=== PATIENT | female | born 1945 | race Caucasian/White ===

== ENCOUNTER 2018-08-17 01:06 | Outpatient (CLI) | payer MEDICARE, BC, SELFPAY ==
--- NOTE | 2018-08-17 11:12 | DI.MAMMO_ITS ---
SYMPTOM/DIAGNOSIS: SCREENING FOR BREAST CANCER Z12.31 BILATERAL SCREENING MAMMOGRAM: Mammograms were interpreted according to the usual protocol including computer analysis with CAD system, tomosynthesis and C view imaging. Comparison is made from exams from 2013 through 2017. The breasts are composed of scattered fibroglandular densities. There are no suspicious masses or suspicious microcalcifications. There has been no significant change. IMPRESSION: Category 1-B. Negative mammogram. Yearly screening mammography is recommended. [facility] ASSESSMENT OF FINDINGS: Negative. Category 1. Patient will receive a letter notifying them of these results. BI-RADS category B. There are scattered areas of fibroglandular density.
[2018-08-17 11:45] LABS: Anion Gap 9.9 mmol/L (3-11); BUN 23 mg/dL (7-18); CO2 29.1 mmol/L (21.0-32.0); CREATININE 1.41 mg/dL (0.55-1.02); Calcium 9.4 mg/dL (8.5-10.1); Chloride 104 mmol/L (98-107); Estimated GFR 36.46 (mL/min/1.73m2); Glucose 108 mg/dL (70-100); Potassium 4.2 mmol/L (3.5-5.1); Sodium 143 mmol/L (136-145)
== END 2018-08-17 01:26 ==
PROVIDERS: PCP Nurse Practitioner Family; Visit Provider Nurse Practitioner Family
DX: Z12.31 Encounter for screening mammogram for malignant neoplasm of breast (principal); N18.4 Chronic kidney disease, stage 4 (severe)
CPT/HCPCS: 36415; 77063; 77067; 80048

== ENCOUNTER 2018-12-21 13:23 | Emergency (ER) | payer MEDICARE, BC, SELFPAY ==
[2018-12-21 13:28] VITALS: BP 185/85; PULSE 100; RESP 20; TEMP 36.8; O2SAT 96
--- NOTE | 2018-12-21 13:38 | W.ED.GENAD ---
Discharge Plan Disposition Patient Disposition: HOME Condition: Stable Discharge Details Chief Complaint: GenMedical Clinical Impression: Essential hypertension Primary Care Provider: Ania Chauhan ED Provider: Lino Glover Home Meds and New Rx's Prescriptions: No Action irbesartan 300 mg tablet 300 mg PO DAILY Qty: 90 RF: 3 Shingrix (PF) 50 mcg/0.5 mL suspension for reconstitution 50 mcg IM .COMPLEX Qty: 1 RF: 1 calcium carbonate-vitamin D3 [Calcium 600 + D(3)] 1 EACH tablet 1 ea PO DAILY RF: 0 loratadine [Claritin Liqui-Gel] 10 MG capsule 10 mg PO DAILY RF: 0 Discharge Instructions Instructions: Hypertension (ED) Additional Instructions: Follow up with your primary care provider within 1-2 weeks for recheck of your blood pressure if you have severe headaches, vomit, decreased urine output, chest pain, abdominal pain or difficulty breathing return to the emergency department Medical Decision Making 73 yo female with hx of htn, comes in with complaints of high blood pressure. She states she checks it routeinly and it was 180 this morning and was told by her pcp in the past to come to the ED if bp s over 150. She denies any symptoms at all. Has no focal neuro deficits, denies any changes in urinary output. She is here for asymptomatic htn and do not feel lab work at this time indicated, I educated on indications to seek ED eval for htn and advised f/u with pcp for continued management of her bp Differential Diagnosis asymptomatic htn, htn HPI General Mode of arrival: ambulatory. Date/Time Provider Initiated Documentation: 12/21/18 13:26. Limitations to Documentation: no limitations. Information obtained by: patient. History of Present Illness 73 year old F presents to the emergency department with the chief complaint of high blood pressure, Patient started experiencing this unknown and it has been intermittent. No relieving factors improve symptom(s), No exacerbating factors reported . Patient notes no other symptoms.. Related Data Home Medications Medication Instructions Recorded Confirmed calcium carbonate-vitamin D3 1 ea PO DAILY 12/03/16 12/21/18 [Calcium 600-Vit D3 400 Tablet] loratadine [Claritin] 10 mg PO DAILY 12/03/16 12/21/18 irbesartan 300 mg tablet 300 mg PO DAILY #90 tab-cap 06/01/18 12/21/18 varicella-zoster glycoE [id number] 50 mcg IM .COMPLEX #1 each 09/14/18 12/21/18 adj(PF) 50 mcg/0.5 mL IM susp, kit Previous Rx's Medication Instructions Recorded irbesartan 300 mg tablet 300 mg PO DAILY #90 tab-cap 06/01/18 varicella-zoster glycoE [id number] 50 mcg IM .COMPLEX #1 each 09/14/18 adj(PF) 50 mcg/0.5 mL IM susp, kit Allergies Allergy/AdvReac Type Severity Reaction Status Date / Time hydrochlorothiazide Allergy Severe Toe Unverified 12/21/18 13:31 Cramps, Red Face, Nausea, Dizzy amlodipine AdvReac Severe leg Unverified 12/21/18 13:31 swelling metoprolol AdvReac Intermediate lightheaded Verified 12/21/18 13:31 and nausea, feet swelling NSAIDS (Non-Steroidal AdvReac Intermediate GI Upset Unverified 12/21/18 13:31 Anti-Inflamma General Stated Complaint: GenMedical FELY: 4 Review of Systems Review of Systems All systems reviewed & are unremarkable except as noted in HPI and below Constitutional Denies chills, Denies fever(s) and Denies weakness Eyes Denies loss of vision ENT Denies change in voice Cardiovascular Denies chest pain and Denies dyspnea Respiratory Denies cough and Denies dyspnea Gastrointestinal Denies abdominal pain, Denies nausea and Denies vomiting Genitourinary Denies dysuria Musculoskeletal Denies joint swelling Integumentary/Breasts Denies rash Neurologic Denies loss of vision and Denies weakness Endocrine Denies cold intolerance and Denies heat intolerance [facility] Medical History Essential hypertension (Chronic) Hyperlipidemia, unspecified (Chronic) Tubular adenoma (Inactive) Stage 4 chronic kidney disease (Chronic 05/14/17) Osteopenia (Chronic) Surgical History section (Resolved) Dilation and curettage (Resolved ~1980) Extraction of cataract (Resolved ~11/2014) Yag Capsulotomy (Resolved 06/23/16) colonoscopy w/ bx (Resolved 07/12/13) Family History Mother Neoplasm Father Essential hypertension CHF (congestive heart failure) Heart disease Neoplasm Stroke Sister Neoplasm Sister Neoplasm Brother Neoplasm Brother Neoplasm Grandmother Neoplasm Grandfather Myocardial infarction Social History Smoking/Tobacco Use Status: Never Alcohol Intake: current Alcohol Intake frequency: holidays/special occasions only Substance use type: does not use Adopted: No Household members: spouse Housing: house Number of Children: 1 number of grandchildren: 2 Pets and animals: Yes Pets and animals: dog(s) What type of physical activity do you participate in: regular exercise Duration: 30-45 minutes/day Frequency: daily Seatbelt use: always Drive intox or ride w/intox 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 Working smoke detector in home: Yes Fire extinguisher in home: No Carbon monox detector in home: Yes Firearms in home: Yes Firearms unloaded and locked: Yes Do you feel safe at home: Yes Victim of physical abuse: No Victim of emotional abuse: No Victim of sexual abuse: No Exam Const General: no acute distress Orientation: alert HENMT Head: normal to inspection Ears: external ears normal General nose exam: external nose normal Mouth: moist mucous membranes Eyes General: appearance normal, both eyes and all related structures Neck Neck: normal visual inspection Resp Effort & Inspection: normal respiratory effort and able to speak in complete sentences Cardio Rate: regular rate Skin General skin exam: no rashes or lesions noted Neuro General: alert and oriented x3 Extrem General: normal to inspection Psych Mental Status: mental status grossly normal Course Vital Signs Temperature 36.8 C 12/21/18 13:28 Pulse 100 H 12/21/18 13:28 Respiratory Rate 20 12/21/18 13:28 Blood Pressure 185/85 H 12/21/18 13:28 Pulse Oximetry 96 12/21/18 13:28 Temperature 36.8 C 12/21/18 13:28 Temperature Source Temporal Artery Scan 12/21/18 13:28 Pulse 100 H 12/21/18 13:28 Respiratory Rate 20 12/21/18 13:28 Respiratory Effort Non-Labored 12/21/18 13:28 Blood Pressure 185/85 H 12/21/18 13:28 Pulse Oximetry 96 12/21/18 13:28 Oxygen Delivery Method Room Air 12/21/18 13:28 Oxygen Flow Rate 0 12/21/18 13:28 Pain Level 0 12/21/18 13:28
--- NOTE | 2018-12-21 13:42 | ED.GENADUL_ITS ---
Discharge Plan Disposition Patient Disposition: HOME Condition: Stable Discharge Details Chief Complaint: GenMedical Clinical Impression: Essential hypertension Primary Care Provider: Ania Chauhan ED Provider: Lino Glover Home Meds and New Rx's Prescriptions: No Action irbesartan 300 mg tablet 300 mg PO DAILY Qty: 90 RF: 3 Shingrix (PF) 50 mcg/0.5 mL suspension for reconstitution 50 mcg IM .COMPLEX Qty: 1 RF: 1 calcium carbonate-vitamin D3 [Calcium 600 + D(3)] 1 EACH tablet 1 ea PO DAILY RF: 0 loratadine [Claritin Liqui-Gel] 10 MG capsule 10 mg PO DAILY RF: 0 Discharge Instructions Instructions: Hypertension (ED) Additional Instructions: Follow up with your primary care provider within 1-2 weeks for recheck of your blood pressure if you have severe headaches, vomit, decreased urine output, chest pain, abdominal pain or difficulty breathing return to the emergency department Medical Decision Making 73 yo female with hx of htn, comes in with complaints of high blood pressure. She states she checks it routeinly and it was 180 this morning and was told by her pcp in the past to come to the ED if bp s over 150. She denies any symptoms at all. Has no focal neuro deficits, denies any changes in urinary output. She is here for asymptomatic htn and do not feel lab work at this time indicated, I educated on indications to seek ED eval for htn and advised f/u with pcp for continued management of her bp Differential Diagnosis asymptomatic htn, htn HPI General Mode of arrival: ambulatory . Date/Time Provider Initiated Documentation: 12/21/18 13:26 . Limitations to Documentation: no limitations . Information obtained by: patient . History of Present Illness 73 year old F presents to the emergency department with the chief complaint of high blood pr essure, Patient started experiencing this unknown and it has been intermittent. No relieving factors improve symptom(s), No exacerbating factors reported . Patient notes no other symptoms.. Related Data Home Medications Medication Instructions Recorded Confirmed calcium carbonate-vitamin D3 1 ea PO DAILY 12/03/16 12/21/18 [Calcium 600-Vit D3 400 Tablet] loratadine [Claritin] 10 mg PO DAILY 12/03/16 12/21/18 irbesartan 300 mg tablet 300 mg PO DAILY #90 tab-cap 06/01/18 12/21/18 varicella-zoster glycoE [id number] 50 mcg IM .COMPLEX #1 each 09/14/18 12/21/18 adj(PF) 50 mcg/0.5 mL IM susp, kit Previous Rx's Medication Instructions Recorded irbesartan 300 mg tablet 300 mg PO DAILY #90 tab-cap 06/01/18 varicella-zoster glycoE [id number] 50 mcg IM .COMPLEX #1 each 09/14/18 adj(PF) 50 mcg/0.5 mL IM susp, kit Allergies Allergy/AdvReac Type Severity Reaction Status Date / Time hydrochlorothiazide Allergy Severe Toe Unverified 12/21/18 13:31 Cramps, Red Face, Nausea, Dizzy amlodipine AdvReac Severe leg Unverified 12/21/18 13:31 swelling metoprolol AdvReac Intermediate lightheaded Verified 12/21/18 13:31 and nausea, feet swelling NSAIDS (Non-Steroidal AdvReac Intermediate GI Upset Unverified 12/21/18 13:31 Anti-Inflamma General Stated Complaint: GenMedical FELY: 4 Review of Systems Review of Systems All systems reviewed & are unremarkable except as noted in HPI and below Constitutional Denies chills, Denies fever(s) and Denies weakness Eyes Denies loss of vision ENT Denies change in voice Cardiovascular Denies chest pain and Denies dyspnea Respiratory Denies cough and Denies dyspnea Gastrointestinal Denies abdominal pain, Denies nausea and Denies vomiting Genitourinary Denies dysuria Musculoskeletal Denies joint swelling Integumentary/Breasts Denies rash Neurologic Denies loss of vision and Denies weakness Endocrine Denies cold intolerance and Denies heat intolerance [facility] Medical History Essential hypertension (Chronic) Hyperlipidemia, unspecified (Chronic) Tubular adenoma (Inactive) Stage 4 chronic kidney disease (Chronic 05/14/17) Osteopenia (Chronic) Surgical History section (Resolved) Dilation and curettage (Resolved ~1980) Extraction of cataract (Resolved ~11/2014) Yag Capsulotomy (Resolved 06/23/16) colonoscopy w/ bx (Resolved 07/12/13) Family History Mother Neoplasm Father Essential hypertension CHF (congestive heart failure) Heart disease Neoplasm Stroke Sister Neoplasm Sister Neoplasm Brother Neoplasm Brother Neoplasm Grandmother Neoplasm Grandfather Myocardial infarction Social History Smoking/Tobacco Use Status: Never Alcohol Intake: current Alcohol Intake frequency: holidays/special occasions only Substance use type: does not use Adopted: No Household members: spouse Housing: house Number of Children: 1 number of grandchildren: 2 Pets and animals: Yes Pets and animals: dog(s) What type of physical activity do you participate in: regular exercise Duration: 30-45 minutes/day Frequency: daily Seatbelt use: always Drive intox or ride w/intox truck driver heavy: No Working smoke detector in home: Yes Fire extinguisher in home: No Carbon monox detector in home: Yes Firearms in home: Yes Firearms unloaded and locked: Yes Do you feel safe at home: Yes Victim of physical abuse: No Victim of emotional abuse: No Victim of sexual abuse: No Exam Const General: no acute distress Orientation: alert HENMT Head: normal to inspection Ears: external ears normal General nose exam: external nose normal Mouth: moist mucous membranes Eyes General: appearance normal, both eyes and all related structures Neck Neck: normal visual inspection Resp Effort & Inspection: normal respiratory effort and able to speak in complete sentences Cardio Rate: regular rate Skin General skin exam: no rashes or lesions noted Neuro General: alert and oriented x3 Extrem General: normal to inspection Psych Mental Status: mental status grossly normal Course Vital Signs Temperature 36.8 C 12/21/18 13:28 Pulse 100 H 12/21/18 13:28 Respiratory Rate 20 12/21/18 13:28 Blood Pressure 185/85 H 12/21/18 13:28 Pulse Oximetry 96 12/21/18 13:28 Temperature 36.8 C 12/21/18 13:28 Temperature Source Temporal Artery Scan 12/21/18 13:28 Pulse 100 H 12/21/18 13:28 Respiratory Rate 20 12/21/18 13:28 Respiratory Effort Non-Labored 12/21/18 13:28 Blood Pressure 185/85 H 12/21/18 13:28 Pulse Oximetry 96 12/21/18 13:28 Oxygen Delivery Method Room Air 12/21/18 13:28 Oxygen Flow Rate 0 12/21/18 13:28 Pain Level 0 12/21/18 13:28
[2018-12-21 13:44] VITALS: RESP 20
== END 2018-12-21 13:43 | disposition home or self-care (01) ==
LOC: ER 13:50
PROVIDERS: Emergency Provider Emergency Medicine; PCP Nurse Practitioner Family
DX: I12.9 Hypertensive chronic kidney disease with stage 1 through stage 4 chronic kidney disease, or unspecified chronic kidney disease (principal); N18.4 Chronic kidney disease, stage 4 (severe)
CPT/HCPCS: 99282

== ENCOUNTER → 2019-07-20 10:46 | Outpatient (BNVA) | payer MEDICARE, BC, SELFPAY | PROVIDERS: PCP Nurse Practitioner Family; Referring Provider Nurse Practitioner Family; Visit Provider Physical Therapy Assistant | DX: Z12.11 Encounter for screening for malignant neoplasm of colon (principal); Z86.010 Personal history of colon polyps; I10 Essential (primary) hypertension ==

== ENCOUNTER 2019-08-03 09:45 | Day surgery (SDC) | payer MEDICARE, BC, SELFPAY ==
--- NOTE | 2019-08-03 09:11 | W.COLOREPORT ---
Date of service: 08/03/19 Time of Service: 09:11 Colonoscopy Report Date of procedure: 08/03/19 Pre-op diagnosis general: A. polyps RLQ abdom pain Post-op diagnosis procedure note: other (polyps x2 divertic . mass in cecum- prob colon cancer) Procedure: ce w/ bx Anesthesia proc note operative: GETA Estimated blood loss (mL): 5 Pathology: other Disposition: same day Prep: Miralax/Dulcolax Procedure Description: dicatetaed
--- NOTE | 2019-08-03 09:12 | W.PM.DSUDISC ---
Discharge Plan Disposition Patient Disposition: HOME Condition: Good Discharge Details Reason For Visit: colon scope Attending Provider: Dia Ho Primary Care Provider: Ania Chauhan Home Meds and New Rx's Prescriptions: Continued Shingrix (PF) 50 mcg/0.5 mL suspension for reconstitution 50 mcg IM .COMPLEX Qty: 1 RF: 1 calcium carbonate-vitamin D3 [Calcium 600 + D(3)] 1 EACH tablet 1 ea PO DAILY RF: 0 loratadine [Claritin Liqui-Gel] 10 MG capsule 10 mg PO DAILY RF: 0 irbesartan 300 mg tablet 300 mg PO DAILY Qty: 90 RF: 3 Discontinued polyethylene glycol 3350 17 gram/dose powder 238 g PO ONCE Qty: 238 RF: 0 bisacodyl [Dulcolax (bisacodyl)] 5 mg tablet,delayed release (DR/EC) 5 mg PO ONCE Qty: 4 RF: 0 Discharge Instructions Additional Instructions: Findings:polyp diverticula colon mass- probable cancer Follow up: Dr. Ho on august 16 -no ibuprofen/asa. tylenol is OK Please call if you develop: fevers >101.5 Nausea or Vomiting Abdominal pain that is not transient You will have some bleeding w/ BM for about 3-5 days. If you start passing clots- go to the ED. DAY SURGERY UNIT POST COLONOSCOPY INSTRUCTIONS 1. Because there will be medication in your system for the next 24 hours, you may feel a little sleepy. Your coordination will be affected. Therefore: a. Do not drive or operate dangerous equipment for 24 hours. b. Do not drink alcohol beverages for 24 hours (not even beer). c. Plan to go home and rest for the day. 2. Generally there are no restrictions on your activity after a day or so has gone by, but you may feel a bit fatigued for a few days. 3 After you arrive home you may have a light meal and return to a normal diet as you can tolerate it without feeling sick to your stomach. 4. After surgery, you may feel pain or discomfort. This should be only transient, but if it persists please contact your doctor. 5. If there are any questions regarding the findings of your procedure, please feel free to contact your doctor. 6. If you are unable to contact your doctor with a problem, contact the hospital at [phone]. 7. Continue all your regular medications unless directed otherwise. I understand the above instructions and have no questions. Signature of Patient or Responsible Adult Escort Date/Time Name of Responsible Adult Escort Signature of Nurse Date/Time Activity:: No lifting over 5 pounds or strenuous activity for 3 days Diet:: Small light meals for the next 24 hours DS: Diagnosis Discharge Diagnosis (1) Adenomatous colon polyp: Status: Acute (2) Diverticula of colon: Status: Acute (3) Colon cancer: Status: Chronic
[2019-08-03 10:20] VITALS: BP 149/83; PULSE 89; RESP 16; TEMP 36.5; O2SAT 95
[2019-08-03] MEDS: Normal Saline 1,000 ML 80 ML IV (10:34)
--- NOTE | 2019-08-03 12:10 | BOWEL_PTH ---
PATIENT: Lois Thorne LOC: [facility] U#:[id number] AGE/SX: 73/F ROOM: RE08/03/[address]: Dia Ho : 1945 BED: DIS: 08/03/2019 SPEC #: [id number] RECD: 08/03/19 13:05 STATUS: EVI REQ #: [id number] GANESH: 08/03/19 12:[address]: Dia Ho DEPT: Surgical Specimen RECD BY: Brie Cotton ENTERED: 08/03/19 13:09 SP TYPE: Bowel OTHR DR: Ania Chauhan APRN Tissues: 1 - BIOPSY BOWEL 2 - BIOPSY BOWEL 3 - BIOPSY BOWEL 4 - BIOPSY BOWEL Procedures: GROSS AND MICRO LEVEL 4 IMMUNOPEROXIDASE STAIN Comments: [id number]
[2019-08-03 13:00] VITALS: BP 167/80; PULSE 99; RESP 17; TEMP 36.5; O2SAT 97
[2019-08-03 13:15] LABS: Abs Immature Grans 0.01 k/cumm (0.0-0.09); Absolute Basophil Count 0.05 k/cumm (0.0-0.2); Absolute Eosinophil Count 0.07 k/cumm (0.0-0.7); Absolute Lymphocyte Count 1.35 k/cumm (1.2-3.4); Absolute Monocyte Count 0.54 k/cumm (0.11-0.7); Absolute Neutrophil Count 6.03 k/cumm (1.2-6.7); Basophils % 0.6; Eosinophils % 0.9; HCT 37.7 % (36.0-46.0); HGB 12.5 g/dL (12.0-15.5); Immature Grans % 0.1; Lymphocytes % 16.8; Mean Corp. HGB Concentration 33.2 g/dL (32.0-36.0); Mean Corpuscular Hemoglobin 29.6 pg (27.0-33.0); Mean Corpuscular Volume 89.1 fL (80-95); Mean Platelet Volume 9.6 fL (8.0-11.0); Monocytes % 6.7; Neutrophils % 74.9; Platelet Count 317 x1000/uL (130-400); RBC 4.23 m/cumm (4.00-5.20); RBC Distribution Width 14.9 % (11.7-14.6); White Blood Cell Count 8.05 k/cumm (4.4-10.8)
[2019-08-03 13:24] LABS: ALT 16 U/L (14-59); AST 19 U/L (15-37); Albumin 3.5 g/dL (3.4-5.0); Alkaline Phosphatase 133 U/L (46-116); Anion Gap 9.2 mmol/L (3-11); BUN 19 mg/dL (7-18); Bilirubin, Total 0.6 mg/dL (0.2-1.0); CO2 25.8 mmol/L (21.0-32.0); CREATININE 1.27 mg/dL (0.55-1.02); Chloride 107 mmol/L (98-107); Estimated GFR 41.02 (mL/min/1.73m2); Glucose 81 mg/dL (74-106); Sodium 142 mmol/L (136-145); Total Protein 7.2 g/dL (6.4-8.2)
[2019-08-03 13:33] LABS: INR 1.1 (0.9-1.1); Prothrombin Time 10.7 sec (9.3-11.0)
[2019-08-03] MEDS: Omnipaque 350 MG/ML 50 ML BTL IJ (13:46)
[2019-08-03] MEDS: Breeza Beverage 473 ML BTL PO (13:48)
--- NOTE | 2019-08-03 14:50 | DI.CT_ITS ---
EXAM: CT ABDOMEN AND PELVIS WO CLINICAL HISTORY: cecal colon cancer TECHNIQUE: Without IV and after oral contrast. COMPARISON: No exams were available for comparison FINDINGS: There is a moderate size hiatal hernia. Contrast is seen within the colon. There is a mass visible at the medial aspect of the cecum. There is no stranding in the surrounding fat. There is no small ernst l obstruction. The appendix appears normal. There is contraction in the sigmoid region. No adenopathy , free air or free fluid is seen. The lung bases appear clear. There is a tiny hypodensity in the megan er, too small to characterize. The gallbladder, spleen, pancreas, adrenals, kidneys and urinary bladd er are unremarkable. Uterine calcifications are seen, likely related to fibroids. No adnexal masses a re identified. There are degenerative changes, greatest in the lower lumbar spine. There is a nerve r oot sheath cyst on the right side at S2. IMPRESSION: Cecal mass. No evidence of adenopathy or metastatic disease.
--- NOTE | 2019-08-03 14:52 | COLE_ITS ---
AUGUST 03, 2019 PREOPERATIVE DIAGNOSIS: History of adenomatous polyps. POSTOPERATIVE DIAGNOSIS: Adenomatous polyps x2. Diverticula. Cecal mass, most likely consistent with colon cancer. Regardless, it will need to be resected. ANESTHESIA: General. ESTIMATED BLOOD LOSS: Less than 5 cc. COMPLICATIONS: None. INDICATIONS: This is a 73-year-old female seen at the request of Ania Chauhan regarding colon cancer screening and is here today for colonoscopy. She did complete a prep satisfactorily. Informed consent was obtained and signed. Risks and benefits of the procedure including, but not limited to, infection, perforation, aspiration and complications from anesthesia were explained. The patient was brought to the endoscopy suite, she was placed in the left decubitus position. Anesthesia was administered per the Department of Anesthesia. Time out was performed. Digital rectal exam was performed prior to anesthesia and revealed poor tone. No hemorrhoids or masses were noted. The previously lubricated Olympus colonoscope was inserted into the rectum and the scope was advanced. The scope was passed up through the rectosigmoid valve. She had a few small scattered diverticula with no evidence of any active bleeding or infection. The cecum was achieved at 90 cm. Good prep was noted. In the cecum she does have a very large mass that is friable and bled quite readily. Multiple biopsies were taken and it is compatible with adenocarcinoma of the colon. It covers at least half of the cecum but is nonobstructing at this time. She also has an additional polyp at 70 cm. that is removed with a cold biter. She has another polyp at 30 cm. that is on a long, floppy stalk. The polyp is taken in the first biopsy jar with a hot snare and then the stalk is taken with a hot snare and placed in a second biopsy jar. Again, she does have small scattered diverticula with no signs of any active bleeding or infection. The scope was then withdrawn. The patient had no complications. She was transferred to the Recovery Room in stable condition. I will advise the patient and her of the findings noted at the time of surgery. We will obtain CT scan and blood work today. I will have her F/u in the office to review the biospy's and to formulate a plan for surgery.
--- NOTE | 2019-08-03 14:55 | DI.RAD_ITS ---
EXAM: XR CHEST 2V PA LATERAL INDICATION: C-R cancer. COMPARISON: No exams were available for comparison TECHNIQUE: 2D digital imaging was performed. FINDINGS: The heart is mildly enlarged. There is tortuosity of the thoracic aorta. The lungs are clear. No p leural effusion or pneumothorax is identified. Age-appropriate degenerative changes are seen in the spine. IMPRESSION: No acute pulmonary process.
--- NOTE | 2019-08-03 15:12 | NUR.NOTE ---
Nursing Note: [address] scan/chest xray. Pt up to bathroom independently. Pt requesting something to eat at the moment. MD in to discuss results with pt.
--- NOTE | 2019-08-03 18:29 | DI.VRAD_ITS ---
PROCEDURE INFORMATION: Exam: XR Chest, 2 Views Exam date and time: 08/03/2019 5:06 PM Age: 73 years old Clinical history: Other: C-r cancer TECHNIQUE: Imaging protocol: XR of the chest Views: 2 views. COMPARISON: No relevant prior studies available. FINDINGS: Lungs: Unremarkable. No consolidation. Pleural space: Unremarkable. No pleural effusion. No pneumothorax. Heart/Mediastinum: Cardiomegaly. Vasculature: Elongated tortuous thoracic aorta. Bones/joints: Degenerative changes in the shoulder joints bilaterally. IMPRESSION: Cardiomegaly. No evidence of active pulmonary disease. Dictated and Authenticated by: Stevie Sy MD. Ordering:SEAN Alvares MD
[2019-08-04 11:52] LABS: CEA 1.2 ng/mL (See Note)
== END 2019-08-03 16:01 | disposition home or self-care (01) ==
PROVIDERS: PCP Nurse Practitioner Family; Visit Provider Surgery
PROC: 0DJD8ZZ Inspection of Lower Intestinal Tract, Via Natural or Artificial Opening Endoscopic (ICD-10-PCS; CPT 45378; principal; 2019-08-03 10:30)
DX: Z12.11 Encounter for screening for malignant neoplasm of colon (principal); Z86.010 Personal history of colon polyps; K57.30 Diverticulosis of large intestine without perforation or abscess without bleeding; D12.0 Benign neoplasm of cecum; D12.3 Benign neoplasm of transverse colon; D12.5 Benign neoplasm of sigmoid colon; I12.9 Hypertensive chronic kidney disease with stage 1 through stage 4 chronic kidney disease, or unspecified chronic kidney disease; N18.4 Chronic kidney disease, stage 4 (severe)
CPT/HCPCS: 45385; 45380; 36415; 80053; 88305; 71046; 74176; 82378; 85025; 85610; 88361; Q9967

== ENCOUNTER → 2019-08-16 12:54 | Outpatient (BNVA) | payer MEDICARE, BC, SELFPAY | PROVIDERS: PCP Nurse Practitioner Family; Referring Provider Nurse Practitioner Family; Visit Provider Surgery | DX: C18.9 Malignant neoplasm of colon, unspecified (principal); D12.6 Benign neoplasm of colon, unspecified; I12.9 Hypertensive chronic kidney disease with stage 1 through stage 4 chronic kidney disease, or unspecified chronic kidney disease; N18.4 Chronic kidney disease, stage 4 (severe) | CPT/HCPCS: 99213 ==

== ENCOUNTER 2019-09-13 00:32 | Outpatient (CLI) | payer MEDICARE, BC, SELFPAY ==
--- NOTE | 2019-09-13 10:57 | DI.US_ITS ---
APPROVED REPORT EXAM: Comprehensive 2D, Doppler, and color-flow Echocardiogram Patient Location: Out-Patient Pharmacy Benefit Manager: Eugenia Mack RDCS (AE) Rhythm: NSR Indications: HTN/ colon mass. follow up. [id number] encounter for follow up examination after Conclusion Left Ventricle : The left ventricle is normal size. The left ventricular systolic function is normal. The left ventricular ejection fraction is within the normal range. There is top normal left ventricu lar wall thickness. Paradoxical septal motion is present otherwise there is normal LV segmental wall motion. Diastolic function is indeterminate but there is evidence of elevated LV filling pressures. L VEF is estimated to be 65-70%. Right Ventricle : The right ventricle is normal size. The right ventricular systolic function appears normal. Atria : The left atrium size is normal. The right atrium size is top normal. Aortic Valve : Aortic valve is probably trileaflet. There is no aortic valvular stenosis. No aortic r egurgitation is present. Mitral Valve : Mitral valve leaflets are mildly thickened. Trace mitral regurgitation. No evidence of mitral valve stenosis. Tricuspid Valve : Tricuspid valve leaflets are mildly thickened but open well. Mild to moderate tric uspid regurgitation. Great Vessels : IVC is top normal in size and collapses >50% with inspiration. Estimated RVSP is 45- 50 mmHg. No prior echocardiogram available for comparison. Wall motion Left Ventricle The left ventricle is normal size. The left ventricular systolic function is normal. The left ventric ular ejection fraction is within the normal range. There is top normal left ventricular wall thicknes s. Paradoxical septal motion. There is normal LV segmental wall motion. Diastolic function is indeter minate but there is evidence of elevated LV filling pressures. LVEF is estimated to be 65-70%. Right Ventricle The right ventricle is normal size. The right ventricular systolic function appears normal. Atria The left atrium size is normal. The right atrium size is top normal. Aortic Valve Aortic valve is probably trileaflet. There is no aortic valvular stenosis. No aortic regurgitation is present. Mitral Valve Mitral valve leaflets are mildly thickened. No evidence of mitral valve stenosis. Trace mitral regurg itation. Tricuspid Valve Tricuspid valve leaflets are mildly thickened but open well. Mild to moderate tricuspid regurgitation . Pulmonic Valve Pulmonic valve is not well visualized. Mild pulmonic regurgitation-early diastolic. Great Vessels The aortic root is normal in size. IVC is top normal in size and collapses >50% with inspiration. Est imated RVSP is 45-50 mmHg. Pericardium Prominent anterior epicardial fat pad is present. 2D Dimensions IVSd 1.05 cm F: 0.6-1.0 LV EDV A2C 70.10 mL PWd 1.05 cm F: 0.6 - 1.0 LV EDV A4C 70.30 mL LVDd 4.15 cm F: 3.8 - 5.2 LA Volume Index A2C 26.41 mL/m2 LVDs 2.50 cm F: 2.2 - 3.5 LA Volume Index A4C 29.59 mL/m2 Aortic Root 3.05 cm F: 2.7 - 3.3 LA Volume Index Biplane 28.82 mL/m2 RA Area A4C 19.82 cm2 LA Area A4C 17.60 cm2 LVOT 1.90 cm (M/F) 1.5-2.5 LA Area A2C 17.14 cm2 Ascending Aorta 3.01 cm F: 2.3 - 3.1 EF AP4 65.58 % LVEF (Teich) 71.00 % EF AP2 75.89 % LVEF (Mott's) 70.24 % F: 54 - 74 EF BP 70.24 % LV Volume 54.24 mL F: 46 - 106 IVC 2.10 cm LV Volume Index 29.80 mL/m2 F: 29 - 61 FS 39.95 % LV Diastology E/A Ratio 0.6 MED E' 0.06 (>0.07 m/s) LV E/e MED 12.95 (<14) LAT E' 0.06 (>0.1 m/s) LV E/e LAT 12.95 (<14) Aortic Valve LVOT Area 2.84 cm2 LVOT Vmax 1.03 m/s LVOT Mean Alejo. 0.80 m/s LVOT Peak Gr. 4.2 mmHg LVOT Mean Gr. 2.8 mmHg AoV Area/ BSA (Vmax) 1.02 cm2/m2 LVOT VTI 0.233 m AoV Vmax 1.57 (0.5-1.3 m/s) ASHVIN Mean Alejo. Index 1.07 cm2/m2 AoV Mean Alejo. 1.16 m/s AoV Peak Grad 9.9 mmHg AoV Mean Grad 5.8 (<5 mmHg) AoV VTI 0.342 (0.18-0.25 m) AoV Area VTI 2.03 (2.5-4.5 cm2) AoV Area/ BSA (VTI) 1.11 cm/m2 Mitral Valve MV E Max Alejo. 0.75 (0.4-1.3 m/s) MVA VTI 5.58 (4.0-6.0 cm2) MV A Velocity 1.25 (0.4-1.3 m/s) E/A Ratio 0.58 Pulmonary Valve PV Peak Velocity 0.99 (0.5-1.5 m/s) RVOT Peak Gr. 1.83 mmHg RVOT Peak Alejo. 0.68 m/s RVOT Mean Gr. 1.10 mmHg RVOT VTI 0.15 m Tricuspid Valve TR P. Velocity 3.47 m/s TV Regurg Vmax 3.47 m/s RAP Estimate 3.00 mmHg RVSP 51.15 mmHg TR P. Gradient 48.15 mmHg
== END 2019-09-13 00:52 ==
PROVIDERS: PCP Nurse Practitioner Family; Visit Provider Surgery
DX: I10 Essential (primary) hypertension (principal); D12.6 Benign neoplasm of colon, unspecified; Z13.6 Encounter for screening for cardiovascular disorders
CPT/HCPCS: 93306

== ENCOUNTER 2019-09-19 01:03 | Outpatient (CLI) | payer MEDICARE, BC, SELFPAY ==
--- NOTE | 2019-09-19 15:47 | DI.CT_ITS ---
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 TECHNIQUE: Imaging protocol: Axial computed tomography images were obtained and coronal and sagittal reformatted images were created and reviewed. COMPARISON: No exams were available for comparison FINDINGS: Tracheobronchial tree: Patent where visualized. Mediastinum and Catherine: No dominant adenopathy or fluid collection. Pulmonary parenchyma: No consolidation or dominant measurable mass. No architectural distortion. Pleura: No effusion or pneumothorax. Heart: Mild cardiomegaly. No significant pericardial effusion. No coronary artery calcification. Aorta: Atherosclerosis. No aneurysmal dilatation. Upper abdomen: Large hiatal hernia. Lymph nodes: Within normal limits. Bones:Degenerative changes. IMPRESSION: No evidence of thoracic metastatic disease. DATA REPOSITORY: All CT scans at this facility are submitted to the National Radiology Data Registry (NRDR) Dose Index Registry (DIR) with the [employer] (A[employer]). RADIATION OPTIMIZATION: All CT scans at this facility use at least one of these dose optimization te chniques: automated exposure control; mA and/or kV adjustment per patient size (includes targeted exa ms where dose is matched to clinical indication); or iterative reconstruction.
== END 2019-09-19 01:23 ==
PROVIDERS: PCP Nurse Practitioner Family; Visit Provider Internal Medicine
DX: C18.0 Malignant neoplasm of cecum (principal); N18.9 Chronic kidney disease, unspecified; Z12.2 Encounter for screening for malignant neoplasm of respiratory organs; I51.7 Cardiomegaly
CPT/HCPCS: 71250

== ENCOUNTER 2019-09-27 12:28 | Outpatient (CLI) | payer MEDICARE, BC, SELFPAY ==
[2019-09-27 13:57] LABS: Anion Gap 10.7 mmol/L (3-11); BUN 43 mg/dL (7-18); CO2 28.3 mmol/L (21.0-32.0); CREATININE 1.61 mg/dL (0.55-1.02); Calcium 9.6 mg/dL (8.5-10.1); Chloride 102 mmol/L (98-107); Glucose 99 mg/dL (74-106); Potassium 4.9 mmol/L (3.5-5.1); Sodium 141 mmol/L (136-145)
== END 2019-09-27 12:48 ==
PROVIDERS: PCP Nurse Practitioner Family; Visit Provider Internal Medicine
DX: I10 Essential (primary) hypertension (principal)
CPT/HCPCS: 36415; 80048